=== PATIENT | male | born 1995 | race Caucasian/White ===

== ENCOUNTER 2017-02-06 23:27 | Emergency (ER) | payer OTHER ==
[~2017-02-06] VITALS: Ht 182.9 cm; Wt 81.3 kg
[2017-02-06 23:38] VITALS: Ht 182.9 cm; Wt 81.3 kg
[2017-02-07] MEDS ORDERED: ACETAMINOPHEN 500 MG TAB PO ONE (00:43)
[2017-02-07] MEDS ORDERED: SODIUM CHLORIDE 0.9% 1000ML 1,000 ML IV STA (00:48)
[2017-02-07] MEDS ORDERED: KETOROLAC TROMETHAMINE 30 MG/ML VIAL IV STA (00:48)
[2017-02-07] MEDS ORDERED: ACET325T96 PO (01:30)
[2017-02-07] MEDS ORDERED: IBUP-1050 PO (01:30)
[2017-02-07 01:43] LABS: BASO % 0.4 %; BASO ABS # 0.03 K/uL (0-0.2); COMPLETE YES; EOS % 0.3 %; HEMATOCRIT 45.2 % (42-52); IG% 0.1 %; LYMPH % 13.5 %; LYMPH ABS # 1.07 K/uL (1.2-3.4); MEAN CELL VOLUME 98.5 fL (80-100); MEAN CORPUSCULAR HGB CONC 34.5 g/dl (32-36); MEAN PLATELET VOLUME 9.8 fL (7.4-10.4); MONO % 17.2 %; NEUT % 68.5 %; PLATELET COUNT 198 K/uL (130-400); RED BLOOD COUNT 4.59 M/uL (4.7-6.1); WHITE BLOOD COUNT 7.91 K/uL (4.8-10.8)
[2017-02-07 02:07] LABS: BUN/CREATININE RATIO 9.4 (10-20); CREATININE 1.1 mg/dl (0.60-1.40); POTASSIUM 4.2 mmol/L (3.5-5.1)
[2017-02-07 03:07] LABS: INFLUENZA A PCR Neg for Influ A (NEG); INFLUENZA B PCR Neg for Influ B (NEG)
[2017-02-07 03:21] VITALS: BP 122/70; PULSE 73; TEMP 37.1; O2SAT 97
--- NOTE | 2017-02-07 03:26 | EMERGENCY ROOM VISIT NOTE ---
History Report prepared by Kostasibodalys: Zane Borjas Under the Supervision of: Dr. Nichole Serrato M.D. First contact with patient: 00:43 Chief Complaint: FEVER Stated Complaint: FEVER,HEADACHE,SORETHROAT History of Present Illness The patient is a 21 year old male who presents to the Emergency Room with complaints of a persistent fever beginning 5 days ago. He also complains of chills, a headache, ear pain, diarrhea, and sore throat. He states that he has been waking up very sweaty as well. The patient denies any cough, or vomiting. He states that he recently developed dizziness as well, which prompted his visit tonight. He states that he has been eating and drinking normally. Source of History: patient Onset: 5 days ago Quality: other (fever) Timing: other (persistent) Associated Symptoms: + chills, + diarrhea, + headache, + sorethroat, No cough, No vomiting Note: The patient also complains of ear pain and dizziness. Review of Systems See HPI for pertinent positives & negatives. A total of 10 systems reviewed and were otherwise negative. Past Medical & Surgical Medical Problems: (1) No Known Active Medical Problems Family History No pertinent family history stated. Social History Smoking Status: Never Smoker Marital Status: single Occupation Status: [employer] student Current/Historical Medications Scheduled PRN Acetaminophen Tab (Tylenol), Unknown Dose PO DIRECTED PRN for Fever Ibuprofen (Advil), 200 MG PO DIRECTED PRN for Fever Allergies Coded Allergies: No Known Allergies (Unverified , 02/07/17) Physical Exam Vital Signs Date Time Temp Pulse Resp B/P Pulse Ox O2 Delivery O2 Flow Rate FiO2 02/07/17 03:21 37.1 73 16 122/70 97 02/07/17 02:02 37.2 77 18 126/67 98 Room Air 02/07/17 01:32 79 02/07/17 00:44 39.3 80 18 153/81 97 Room Air 02/06/17 23:38 38.5 89 18 141/73 99 Room Air Physical Exam Vital signs reviewed. General: Well-appearing male, in no significant distress. HEENT: No scleral icterus, PERRLA, neck supple. TMs are blocked by cerumen. Posterior oropharynx is clear. Atraumatic. Cardiovascular: Regular rate and rhythm, no extra sounds. Pulmonary: Clear to auscultation bilaterally, normal work of breathing. Abdomen: Soft, nontender, nondistended, positive bowel sounds. Musculoskeletal: Atraumatic, no peripheral edema. Neurologic: Patient awake alert and oriented x 3, no meningeal signs Skin: Warm, dry, no rash Medical Decision & Procedures ER Provider Diagnostic Interpretation: Two View Chest X-ray interpreted by me: negative for infiltrate or failure. Laboratory Results 02/07/17 01:24 Red Blood Count 4.59, Mean Corpuscular Volume 98.5, Mean Corpuscular Hemoglobin 34.0, Mean Corpuscular Hemoglobin Concent 34.5, Mean Platelet Volume 9.8, Neutrophils (%) (Auto) 68.5, Lymphocytes (%) (Auto) 13.5, Monocytes (%) (Auto) 17.2, Eosinophils (%) (Auto) 0.3, Basophils (%) (Auto) 0.4, Neutrophils # (Auto ) 5.42, Lymphocytes # (Auto) 1.07, Monocytes # (Auto) 1.36, Eosinophils # (Auto ) 0.02, Basophils # (Auto) 0.03 02/07/17 01:24 Test 02/07/17 00:51 02/07/17 01:24 Influenza Type A (RT-PCR) Neg for Influ A (NEG) Influenza Type A Antigen Neg for Influ A (NEG) Influenza Type B Antigen Neg for Influ B (NEG) Influenza Type B (RT-PCR) Neg for Influ B (NEG) White Blood Count 7.91 K/uL (4.8-10.8) Red Blood Count 4.59 M/uL (4.7-6.1) Hemoglobin 15.6 g/dL (14.0-18.0) Hematocrit 45.2 % (42-52) Mean Corpuscular Volume 98.5 fL (80-100) Mean Corpuscular Hemoglobin 34.0 pg (25-34) Mean Corpuscular Hemoglobin Concent 34.5 g/dl (32-36) Platelet Count 198 K/uL (130-400) Mean Platelet Volume 9.8 fL (7.4-10.4) Neutrophils (%) (Auto) 68.5 % Lymphocytes (%) (Auto) 13.5 % Monocytes (%) (Auto) 17.2 % Eosinophils (%) (Auto) 0.3 % Basophils (%) (Auto) 0.4 % Neutrophils # (Auto) 5.42 K/uL (1.4-6.5) Lymphocytes # (Auto) 1.07 K/uL (1.2-3.4) Monocytes # (Auto) 1.36 K/uL (0.11-0.59) Eosinophils # (Auto) 0.02 K/uL (0-0.5) Basophils # (Auto) 0.03 K/uL (0-0.2) RDW Standard Deviation 48.0 fL (36.4-46.3) RDW Coefficient of Variation 13.4 % (11.5-14.5) Immature Granulocyte % (Auto) 0.1 % Immature Granulocyte # (Auto) 0.01 K/uL (0.00-0.02) Anion Gap 7.0 mmol/L (3-11) Est Creatinine Clear Calc Drug Dose 118.6 ml/min Estimated GFR () 112.2 Estimated GFR (Non- 96.8 BUN/Creatinine Ratio 9.4 (10-20) Calcium Level 9.0 mg/dl (8.5-10.1) Total Bilirubin 0.4 mg/dl (0.2-1) Direct Bilirubin 0.2 mg/dl (0-0.2) Aspartate Amino Transf (AST/SGOT) 17 U/L (15-37) Alanine Aminotransferase (ALT/SGPT) 20 U/L (12-78) Alkaline Phosphatase 86 U/L (45-117) Total Protein 7.3 gm/dl (6.4-8.2) Albumin 3.9 gm/dl (3.4-5.0) Laboratory results per my review. Medications Administered Medications (Trade) Dose Ordered Sig/Jagjit Route Start Time Stop Time Status Last Admin Dose Admin Acetaminophen 1000 mg 1,000 mg STK-MED ONCE PO 02/07/17 00:43 02/07/17 00:47 DC 02/07/17 00:49 1,000 MG Sodium Chloride (Nss 1000ml) 1,000 ml @ 999 mls/hr Q1H1M STAT IV 02/07/17 00:48 02/07/17 01:48 DC 02/07/17 01:22 999 MLS/HR Ketorolac Tromethamine (Toradol Inj) 30 mg NOW STAT IV 02/07/17 00:48 02/07/17 00:51 DC 02/07/17 01:23 30 MG ED Course 0047: Past medical records reviewed. The patient was evaluated in room B12B. A complete history and physical examination was performed. 0048: Ordered Toradol Inj 30 mg IV, Sodium Chloride 1000 ml @ 999 mls/hr IV. 0320: Upon reevaluation, the patient appeared to have improvement of his symptoms. I discussed findings with him. The patient verbalized agreement of the treatment plan. He was discharged home. Medical Decision Differential diagnosis: Influenza, other viral illness, pneumonia, urinary tract infection, metabolic abnormality, medication effect, cellulitis, meningitis, intra-abdominal source. This patient was evaluated and appeared to be in no significant distress. IV access was obtained and laboratory work was drawn. The patient's physical exam is fairly unrevealing. Influenza swab and strep swabs are negative. Formal culture is pending. Patient was feeling improved after IV hydration, IV Toradol and oral Tylenol. His laboratory work reveals a normal white blood cell count. The patient was informed of the findings and was advised to use Tylenol and ibuprofen as needed for pain or fever. He will drink plenty of fluids and follow-up with his physician this week. He will return to the ER for worsening of symptoms or any medical concerns. Impression Primary Impression: Febrile illness, acute Scribe Attestation The scribe's documentation has been prepared under my direction and personally reviewed by me in its entirety. I confirm that the note above accurately reflects all work, treatment, procedures, and medical decision making performed by me. Departure Information Dispostion Home / Self-Care Referrals [facility] (PCP) Forms HOME CARE DOCUMENTATION FORM, IMPORTANT VISIT INFORMATION Patient Instructions My [facility] Additional Instructions Diagnosis: Febrile illness Tylenol 650 mg every 6 hours as needed for pain or fever. Ibuprofen 600 mg every 6 hours as needed for pain or fever. Drink plenty of clear fluids. Follow-up with [facility] for reevaluation this week. Return to the emergency department for worsening of symptoms or any medical concerns.
--- NOTE | 2017-02-07 07:30 | DIAGNOSTIC IMAGING REPORT ---
CHEST 2 VIEWS ROUTINE CLINICAL HISTORY: fever, cough COMPARISON STUDY: No previous studies for comparison. FINDINGS: The cardiac and mediastinal contours are normal. There is no evidence of focal pulmonary consolidation. There is no evidence of failure. No pleural effusions are visualized.[ IMPRESSION: No active disease in the chest. Electronically signed by: Holden Joyce M.D. 02/07/2017 7:29 AM Dictated Date/Time: 02/07/2017 7:29 AM
== END 2017-02-07 03:23 | disposition home or self-care (01) ==
LOC: C.EDB 23:28
DX: R50.9 Fever, unspecified (principal)